=== PATIENT | female | born 1970 | race African-American/Black ===

== ENCOUNTER 2016-12-22 12:33 | Emergency (ER) | payer OTHER ==
[~2016-12-22] VITALS: Ht 167.6 cm; Wt 151.7 kg
[~2016-12-22 12:33] MED LIST: ABILIFY PO; ABILIFY20 MG PO; ABILIFY30 MG PO; ALLERGY RELIEF10 M1 PO; ANTIVERT25 MG PO; ASPIRIN EC325 MG PO; AZITHROMYCIN250 MG1 PO; CHILDREN'S ASPI81 M1 PO; DEPAKOTE ER250 MG PO; DESYREL 150 MG150 MG PO; DESYREL100 MG PO; EXCEDRIN EXT1 TABLET PO; Ecotrin PO; FIORICET 50-301 EACH PO; FIORICET WI1 CAPSULE PO; FLEXERIL10 MG PO; FLONASE16 G1 BOTH NARES; GEODON80 MG PO; HYDROCHLOROTH12.5 M3 PO; IMITREX100 MG PO; LASIX20 MG PO; LEVAQUIN500 MG PO; MECLIZINE HCL25 MG PO; MEDROL DOSEPAK4 MG PO; MINIPRESS1 MG PO; MOBIC7.5 MG PO; MOTION SICKNESS25 M1 PO; MOTRIN IB200 MG PO; MOTRIN400 MG PO; MOTRIN600 MG PO; MOTRIN800 MG PO; NAPROSYN500 MG PO; NAPROXEN500 MG PO; NEURONTIN100 MG PO; NOHOMEMEDS; NON-DROWSY ALLE10 MG PO; PHENERGAN-CODE120 ML PO; PRAVACHOL10 MG PO; PRAVASTATIN SOD10 MG PO; PRAZOSIN HCL1 MG PO; PREDNISONE20 MG PO; PRILOSEC20 MG PO; PRILOSEC40 MG PO; PROAIR HFA8.5 GM IH; RANITIDINE HCL150 MG PO; REGLAN10 MG PO; SUMATRIPTAN SU100 MG PO; TOPAMAX100 MG PO; TOPAMAX25 MG PO; TRAMADOL HCL50 MG PO; TYLENOL EXTRA500 MG PO; ULTRAM50 MG PO; ZANTAC150 MG PO; ZOLOFT PO; ZOLOFT100 MG PO
[2016-12-22 13:16] LABS: HEMATOCRIT 42.9 % (36.0-46.0); MCH 30.1 PG (29.0-34.0); MCHC 33.1 G/DL (30.0-36.0); MCV 90.9 FL (83-99); MEAN PLAT.VOLUME 9.6 uM^3 (9.5-12.4); PLATELET COUNT 356 K/uL (156-360); RBC DIS.WIDTH-SD 42.6 % (39-53); RED BLOOD COUNT 4.72 M/uL (3.80-5.20); WHITE BLOOD COUNT 5.5 K/uL (4.1-10.2)
[2016-12-22 13:31] LABS: CHLORIDE 105 mEq/L (99-109); POTASSIUM 3.9 mEq/L (3.7-5.4); SODIUM 138 mEq/L (136-147)
[2016-12-22 13:32] LABS: GLUCOSE 90 mg/dL (70-99)
[2016-12-22 13:33] LABS: TROP-I INTERPRETATION NEGATIVE; TROPONIN-I < 0.01 ng/mL (0.0-0.30)
[2016-12-22 13:34] LABS: ANION GAP 7 MEQ/L (2-14)
[2016-12-22 13:36] LABS: GFR ESTIMATE (CALCULATED) > 59 mL/min/
[2016-12-22 13:37] LABS: UREA NITROGEN (BUN) 9 mg/dL (9-23)
[2016-12-22 18:04] LABS: D-DIMER ELISA 0.23 mg/L FEU (< 0.57)
[2016-12-22 18:12] LABS: TROP-I INTERPRETATION NEGATIVE; TROPONIN-I < 0.01 ng/mL (0.0-0.30)
[2016-12-22] MEDS ORDERED: VALIUM5 MG PO (18:21)
[2016-12-22] MEDS ORDERED: ULTRACET1 TABLET PO (18:21)
[2016-12-22] MEDS ORDERED: TESSALON PERLE100 MG PO (18:21)
[2016-12-22] MEDS ORDERED: INDOCIN50 MG PO (18:21)
[2016-12-22 18:44] LABS: INFLUENZA A VIRAL ANTIGEN NEGATIVE; INFLUENZA B VIRAL ANTIGEN NEGATIVE
[2016-12-22 20:07] VITALS: BP 145/89
== END 2016-12-22 20:07 | disposition home or self-care (01) ==
LOC: EME 12:33
PROVIDERS: Physician Assistant
DX: M62.830 Muscle spasm of back (principal); S29.011A Strain of muscle and tendon of front wall of thorax, initial encounter; X58.XXXA Exposure to other specified factors, initial encounter; J40 Bronchitis, not specified as acute or chronic; I10 Essential (primary) hypertension; R11.0 Nausea; R42 Dizziness and giddiness; R51 Headache; Z79.82 Long term (current) use of aspirin; Z87.891 Personal history of nicotine dependence
CPT/HCPCS: 71020; 80048; 84484; 85027; 85379; 87502; 93005; 99281; 99284

== ENCOUNTER 2017-02-02 00:15 | Emergency (ER) | payer OTHER ==
[~2017-02-02] VITALS: Ht 167.6 cm; Wt 150.5 kg
[~2017-02-02 00:15] MED LIST changes: +INDOCIN50 MG PO; +TESSALON PERLE100 MG PO; +ULTRACET1 TABLET PO; +VALIUM5 MG PO
[2017-02-02] MEDS ORDERED: PERCOCET 5/31 TABLET PO (01:37)
[2017-02-02] MEDS ORDERED: FLEXERIL10 MG PO (01:38)
[2017-02-02 01:50] VITALS: BP 146/82
== END 2017-02-02 01:58 | disposition home or self-care (01) ==
LOC: EXP 00:15 → EME 00:15 → EXP 01:58
DX: S70.01XA Contusion of right hip, initial encounter (principal); M25.511 Pain in right shoulder; W11.XXXA Fall on and from ladder, initial encounter; Z79.82 Long term (current) use of aspirin; Z87.891 Personal history of nicotine dependence
CPT/HCPCS: 73030; 73502; 99281; 99283

== ENCOUNTER 2017-03-04 18:20 | Emergency (ER) | payer OTHER ==
[~2017-03-04] VITALS: Ht 167.6 cm; Wt 152.0 kg
[~2017-03-04 18:20] MED LIST changes: +PERCOCET 5/31 TABLET PO
[2017-03-04 19:37] LABS: MCH 30.2 PG (29.0-34.0); MCHC 33.2 G/DL (30.0-36.0); MCV 91.1 FL (83-99); MEAN PLAT.VOLUME 9.6 uM^3 (9.5-12.4); PLATELET COUNT 377 K/uL (156-360); RBC DIS.WIDTH-CV 12.7 % (11.8-14.6); WHITE BLOOD COUNT 8.2 K/uL (4.1-10.2)
[2017-03-04 19:44] LABS: CHLORIDE 105 mEq/L (99-109); POTASSIUM 3.5 mEq/L (3.7-5.4); SODIUM 138 mEq/L (136-147)
[2017-03-04 19:46] LABS: GLUCOSE 93 mg/dL (70-99)
[2017-03-04 19:48] LABS: ANION GAP 8 MEQ/L (2-14)
[2017-03-04 19:50] LABS: GFR ESTIMATE (CALCULATED) > 59 mL/min/
[2017-03-04 19:51] LABS: UREA NITROGEN (BUN) 7 mg/dL (9-23)
[2017-03-04 21:01] LABS: ADD MIUA? YES; BILIRUBIN NEGATIVE; BLOOD NEGATIVE; COLOR YELLOW ((YELLOW)); GLUCOSE (STRIP) NEGATIVE; KETONES NEGATIVE; LEUKOCYTES TRACE; NITRITE NEGATIVE; PROTEIN (STRIP) NEGATIVE; SPECIFIC GRAVITY 1.016 (1.000-1.030); UROBILINOGEN 0.2 MG/DL (0.2-1.0)
[2017-03-04 21:02] LABS: INTERNAL CONTROL VALID? YES
[2017-03-04 21:09] LABS: BACTERIA NONE SEEN /HPF; EPITHELIAL CELLS 1+ /HPF; MUCUS TRACE /LPF; RED BLOOD CELLS 0-5 /HPF (0-5); UCUL ADDED? NO; WHITE BLOOD CELLS 0-5 /HPF (0-5)
[2017-03-04 21:38] VITALS: BP 151/108
== END 2017-03-04 21:46 | disposition home or self-care (01) ==
LOC: EME 18:20
PROVIDERS: Emergency Medicine
DX: I10 Essential (primary) hypertension (principal); R51 Headache; H53.8 Other visual disturbances; R11.0 Nausea; J45.909 Unspecified asthma, uncomplicated; Z82.49 Family history of ischemic heart disease and other diseases of the circulatory system; Z79.82 Long term (current) use of aspirin; Z87.891 Personal history of nicotine dependence
CPT/HCPCS: 71020; 80048; 81003; 84703; 85027; 93005; 99281; 99284

== ENCOUNTER 2017-04-28 13:45 | Emergency (ER) | payer OTHER ==
[~2017-04-28] VITALS: Ht 167.6 cm; Wt 149.2 kg
[2017-04-28 15:35] LABS: HEMATOCRIT 41.7 % (36.0-46.0); MCH 30.2 PG (29.0-34.0); MCHC 32.9 G/DL (30.0-36.0); MCV 91.9 FL (83-99); MEAN PLAT.VOLUME 9.7 uM^3 (9.5-12.4); PLATELET COUNT 370 K/uL (156-360); RBC DIS.WIDTH-CV 13.1 % (11.8-14.6); RBC DIS.WIDTH-SD 43.9 % (39-53); RED BLOOD COUNT 4.54 M/uL (3.80-5.20); WHITE BLOOD COUNT 8.3 K/uL (4.1-10.2)
[2017-04-28 15:49] LABS: CHLORIDE 110 mEq/L (99-109); POTASSIUM 3.8 mEq/L (3.7-5.4); SODIUM 140 mEq/L (136-147)
[2017-04-28 15:51] LABS: GLUCOSE 92 mg/dL (70-99)
[2017-04-28 15:52] LABS: ANION GAP 5 MEQ/L (2-14)
[2017-04-28 15:53] LABS: TOTAL BILIRUBIN 0.4 mg/dL (0.0-1.0)
[2017-04-28 15:55] LABS: ALKALINE PHOSPHATASE 80 IU/L (3-129); GFR ESTIMATE (CALCULATED) > 59 mL/min/
[2017-04-28 15:56] LABS: UREA NITROGEN (BUN) 10 mg/dL (9-23)
[2017-04-28 15:57] LABS: QUANTITATIVE HCG < 4.0 MIU/ML
[2017-04-28 15:58] LABS: LIPASE 26 U/L (1.0-51.0)
[2017-04-28 17:42] LABS: ADD MIUA? YES; BILIRUBIN NEGATIVE; BLOOD SMALL; COLOR YELLOW ((YELLOW)); GLUCOSE (STRIP) NEGATIVE; KETONES NEGATIVE; LEUKOCYTES MODERATE; NITRITE NEGATIVE; PROTEIN (STRIP) 30; SPECIFIC GRAVITY 1.023 (1.000-1.030); UROBILINOGEN 0.2 MG/DL (0.2-1.0)
[2017-04-28 17:53] LABS: BACTERIA RARE /HPF; EPITHELIAL CELLS 2+ /HPF; MUCUS TRACE /LPF; RED BLOOD CELLS 0-5 /HPF (0-5); UCUL ADDED? NO; WHITE BLOOD CELLS 0-5 /HPF (0-5)
[2017-04-28] MEDS ORDERED: ULTRAM50 MG PO (19:46)
[2017-04-28] MEDS ORDERED: ZOFRAN4 MG PO (19:46)
[2017-04-28 20:07] VITALS: BP 127/77
== END 2017-04-28 20:08 | disposition home or self-care (01) ==
LOC: EME 13:45
DX: R10.9 Unspecified abdominal pain (principal); I10 Essential (primary) hypertension; K21.9 Gastro-esophageal reflux disease without esophagitis; J45.909 Unspecified asthma, uncomplicated; Z79.82 Long term (current) use of aspirin; Z87.891 Personal history of nicotine dependence
CPT/HCPCS: 74177; 80053; 81003; 83690; 84702; 85027; 99281; 99285; J3010; J7030

== ENCOUNTER 2017-07-03 14:29 | Emergency (ER) | payer OTHER ==
[~2017-07-03] VITALS: Ht 167.6 cm; Wt 148.8 kg
[~2017-07-03 14:29] MED LIST changes: +ZOFRAN4 MG PO
[2017-07-03 14:52] LABS: MCH 30.2 PG (29.0-34.0); MCHC 32.6 G/DL (30.0-36.0); MCV 92.7 FL (83-99); MEAN PLAT.VOLUME 9.2 uM^3 (9.5-12.4); PLATELET COUNT 357 K/uL (156-360); RBC DIS.WIDTH-CV 12.8 % (11.8-14.6); RBC DIS.WIDTH-SD 43.7 % (39-53); RED BLOOD COUNT 4.64 M/uL (3.80-5.20); WHITE BLOOD COUNT 6.1 K/uL (4.1-10.2)
[2017-07-03 15:00] LABS: CHLORIDE 106 mEq/L (99-109); POTASSIUM 4.3 mEq/L (3.7-5.4); SODIUM 139 mEq/L (136-147)
[2017-07-03 15:03] LABS: GLUCOSE 96 mg/dL (70-99)
[2017-07-03 15:04] LABS: ANION GAP 7 MEQ/L (2-14)
[2017-07-03 15:05] LABS: TOTAL BILIRUBIN 0.4 mg/dL (0.0-1.0)
[2017-07-03 15:06] LABS: ALKALINE PHOSPHATASE 81 IU/L (3-129); GFR ESTIMATE (CALCULATED) > 59 mL/min/
[2017-07-03 15:07] LABS: UREA NITROGEN (BUN) 12 mg/dL (9-23)
[2017-07-03 15:15] LABS: QUANTITATIVE HCG < 4.0 MIU/ML
[2017-07-03 16:28] LABS: LIPASE 11 U/L (1.0-51.0)
[2017-07-03 17:37] LABS: ADD MIUA? YES; BILIRUBIN NEGATIVE; BLOOD SMALL; COLOR YELLOW ((YELLOW)); GLUCOSE (STRIP) NEGATIVE; KETONES NEGATIVE; LEUKOCYTES NEGATIVE; NITRITE NEGATIVE; PROTEIN (STRIP) NEGATIVE; SPECIFIC GRAVITY 1.021 (1.000-1.030); UROBILINOGEN 0.2 MG/DL (0.2-1.0)
[2017-07-03 18:00] LABS: BACTERIA NONE SEEN /HPF; EPITHELIAL CELLS RARE /HPF; MUCUS TRACE /LPF; RED BLOOD CELLS 0-5 /HPF (0-5); UCUL ADDED? NO; WHITE BLOOD CELLS 0-5 /HPF (0-5)
[2017-07-03 18:39] VITALS: BP 154/95
== END 2017-07-03 18:40 | disposition home or self-care (01) ==
LOC: EME 14:29
DX: D25.1 Intramural leiomyoma of uterus (principal); R10.2 Pelvic and perineal pain; R11.0 Nausea; I10 Essential (primary) hypertension; J45.909 Unspecified asthma, uncomplicated; Z79.82 Long term (current) use of aspirin; Z87.891 Personal history of nicotine dependence
CPT/HCPCS: 76856; 80053; 81003; 83690; 84702; 85027; 99281; 99283; J3010

== ENCOUNTER 2017-08-11 21:39 | Inpatient (IN) | payer OTHER ==
[~2017-08-11] VITALS: Ht 167.6 cm; Wt 145.1 kg
[~2017-08-11 21:39] MED LIST changes: +DICLOFENAC SODI25 MG PO; +OXYCODONE-APAP1 EAC6 PO
[2017-08-12 05:53] VITALS: BP 123/60
[2017-08-12 19:55] VITALS: BP 129/72
[2017-08-12 23:00] VITALS: BP 124/78
[2017-08-13 03:20] VITALS: BP 135/81
[2017-08-13 06:45] LABS: HEMATOCRIT 36.9 % (36.0-46.0); MCH 29.8 PG (29.0-34.0); MCHC 33.1 G/DL (30.0-36.0); MEAN PLAT.VOLUME 9.4 uM^3 (9.5-12.4); PLATELET COUNT 382 K/uL (156-360); RBC DIS.WIDTH-CV 12.4 % (11.8-14.6); RBC DIS.WIDTH-SD 40.9 % (39-53); WHITE BLOOD COUNT 13.1 K/uL (4.1-10.2)
[2017-08-13 08:13] VITALS: BP 111/67
[2017-08-13 11:57] VITALS: BP 115/65
[2017-08-13 17:05] VITALS: BP 112/53
[2017-08-13 19:35] VITALS: BP 132/64
[2017-08-13 23:12] VITALS: BP 139/84
[2017-08-14 03:30] VITALS: BP 142/71
[2017-08-14 07:50] VITALS: BP 166/87
[2017-08-14] MEDS ORDERED: ZOFRAN4 MG PO (09:36)
[2017-08-14] MEDS ORDERED: PERCOCET 5/31 TABLET PO (09:36)
[2017-08-14] MEDS ORDERED: MOTRIN800 MG PO (09:36)
[2017-08-14 12:23] VITALS: BP 130/72
== END 2017-08-14 12:35 | disposition home or self-care (01) | DRG 742 ==
LOC: ENRESERV 21:39 → 2SOUTH 08-12 05:26 → ENRESERV 08-12 12:12 → 2EAST 08-12 13:38
PROVIDERS: Obstetrics & Gynecology
DX: D25.9 Leiomyoma of uterus, unspecified (principal); Z68.43 Body mass index [BMI] 50.0-59.9, adult; E66.01 Morbid (severe) obesity due to excess calories; G89.29 Other chronic pain; K21.9 Gastro-esophageal reflux disease without esophagitis; N93.9 Abnormal uterine and vaginal bleeding, unspecified; Z87.891 Personal history of nicotine dependence; Z80.0 Family history of malignant neoplasm of digestive organs; Z98.51 Tubal ligation status; N72 Inflammatory disease of cervix uteri
CPT/HCPCS: 36415; 84702 GA; 85025; 85027; 86850; 86900; 86901; 88307; 99202; J0131; J0330; J0690; J1100; J1170; J2250; J2270; J2405; J2710; J2765; J3010; J7120

== ENCOUNTER 2017-10-25 13:23 | Emergency (ER) | payer OTHER ==
[~2017-10-25] VITALS: Ht 167.6 cm; Wt 144.3 kg
[2017-10-25] MEDS ORDERED: NAPROSYN500 MG PO (16:13)
[2017-10-25 16:38] VITALS: BP 119/58
== END 2017-10-25 16:40 | disposition home or self-care (01) ==
LOC: EME 13:23
DX: S63.501A Unspecified sprain of right wrist, initial encounter (principal); Y04.0XXA Assault by unarmed brawl or fight, initial encounter; Z88.0 Allergy status to penicillin
CPT/HCPCS: 73110; 99281; 99283

== ENCOUNTER 2017-11-24 14:24 | Emergency (ER) | payer OTHER ==
[~2017-11-24] VITALS: Ht 167.6 cm; Wt 144.0 kg
[2017-11-24 14:56] LABS: HEMATOCRIT 41.8 % (36.0-46.0); HEMOGLOBIN 13.9 G/DL (11.9-15.5); MCHC 33.3 G/DL (30.0-36.0); MCV 90.3 FL (83-99); PLATELET COUNT 417 K/uL (156-360); RBC DIS.WIDTH-CV 12.7 % (11.8-14.6); RBC DIS.WIDTH-SD 41.8 % (39-53); RED BLOOD COUNT 4.63 M/uL (3.80-5.20); WHITE BLOOD COUNT 7.3 K/uL (4.1-10.2)
[2017-11-24 15:06] LABS: ALBUMIN 3.7 g/dL (3.2-4.8); CHLORIDE 108 mEq/L (99-109); POTASSIUM 3.5 mEq/L (3.7-5.4); SODIUM 138 mEq/L (136-147)
[2017-11-24 15:09] LABS: GLUCOSE 119 mg/dL (70-99); TOTAL PROTEIN 7.4 g/dL (6.4-8.3)
[2017-11-24 15:11] LABS: TOTAL BILIRUBIN 0.5 mg/dL (0.0-1.0)
[2017-11-24 15:12] LABS: ALKALINE PHOSPHATASE 90 IU/L (3-129); CREATININE 0.8 mg/dL (0.6-1.3); GFR ESTIMATE (CALCULATED) > 59 mL/min/
[2017-11-24 15:13] LABS: UREA NITROGEN (BUN) 10 mg/dL (9-23)
[2017-11-24 15:14] LABS: AST (GOT) 16 IU/L (2-34)
[2017-11-24 15:15] LABS: ALT (GPT) 14 IU/L (3-49)
[2017-11-24 15:21] LABS: QUANTITATIVE HCG < 4.0 MIU/ML
[2017-11-24 17:23] LABS: APPEARANCE CLOUDY ((CLEAR)); BILIRUBIN NEGATIVE; BLOOD SMALL; COLOR YELLOW ((YELLOW)); GLUCOSE (STRIP) NEGATIVE; KETONES NEGATIVE; LEUKOCYTES NEGATIVE; NITRITE NEGATIVE; PROTEIN (STRIP) NEGATIVE; SPECIFIC GRAVITY 1.026 (1.000-1.030)
[2017-11-24 17:32] LABS: BACTERIA RARE /HPF; EPITHELIAL CELLS 2+ /HPF; HYALINE CASTS 0-5 /LPF; MUCUS 2+ /LPF; RED BLOOD CELLS 0-5 /HPF (0-5); UCUL ADDED? NO; WHITE BLOOD CELLS 0-5 /HPF (0-5)
[2017-11-24 19:52] VITALS: BP 137/103
== END 2017-11-24 19:54 | disposition home or self-care (01) ==
LOC: EME 14:24
DX: R10.2 Pelvic and perineal pain (principal); R93.5 Abnormal findings on diagnostic imaging of other abdominal regions, including retroperitoneum; I10 Essential (primary) hypertension; J45.909 Unspecified asthma, uncomplicated; G43.909 Migraine, unspecified, not intractable, without status migrainosus; F41.9 Anxiety disorder, unspecified; Z87.891 Personal history of nicotine dependence; Z79.82 Long term (current) use of aspirin; Z79.891 Long term (current) use of opiate analgesic; Z90.710 Acquired absence of both cervix and uterus; Z87.19 Personal history of other diseases of the digestive system; Z88.0 Allergy status to penicillin
CPT/HCPCS: 74177; 80053; 81003; 84702; 85027; 99281; 99284

== ENCOUNTER 2018-04-28 20:50 | Emergency (ER) | payer OTHER ==
[~2018-04-28] VITALS: Ht 167.6 cm; Wt 144.0 kg
[2018-04-28 21:30] LABS: HEMATOCRIT 39.6 % (36.0-46.0); HEMOGLOBIN 13.3 G/DL (11.9-15.5); MCH 30.2 PG (29.0-34.0); MCHC 33.6 G/DL (30.0-36.0); PLATELET COUNT 347 K/uL (156-360); RBC DIS.WIDTH-CV 12.9 % (11.8-14.6); RBC DIS.WIDTH-SD 42.8 % (39-53); WHITE BLOOD COUNT 7.8 K/uL (4.1-10.2)
[2018-04-28 21:40] LABS: ALBUMIN 3.9 g/dL (3.2-4.8)
[2018-04-28 21:41] LABS: CHLORIDE 110 mEq/L (99-109); POTASSIUM 3.8 mEq/L (3.7-5.4); SODIUM 143 mEq/L (136-147)
[2018-04-28 21:43] LABS: GLUCOSE 100 mg/dL (70-99); TOTAL PROTEIN 7.1 g/dL (6.4-8.3)
[2018-04-28 21:45] LABS: TOTAL BILIRUBIN 0.4 mg/dL (0.0-1.0)
[2018-04-28 21:46] LABS: ALKALINE PHOSPHATASE 80 IU/L (3-129)
[2018-04-28 21:47] LABS: CREATININE 0.9 mg/dL (0.6-1.3); GFR ESTIMATE (CALCULATED) > 59 mL/min/
[2018-04-28 21:48] LABS: AST (GOT) 22 IU/L (2-34); UREA NITROGEN (BUN) 9 mg/dL (9-23)
[2018-04-28 21:49] LABS: ALT (GPT) 17 IU/L (3-49)
[2018-04-28 22:03] LABS: APPEARANCE SL.HAZY ((CLEAR)); BILIRUBIN NEGATIVE; BLOOD NEGATIVE; COLOR YELLOW ((YELLOW)); GLUCOSE (STRIP) NEGATIVE; KETONES NEGATIVE; LEUKOCYTES NEGATIVE; NITRITE NEGATIVE; PROTEIN (STRIP) NEGATIVE; SPECIFIC GRAVITY 1.024 (1.000-1.030)
[2018-04-28 22:08] LABS: BACTERIA NONE SEEN /HPF; EPITHELIAL CELLS 1+ /HPF; MUCUS TRACE /LPF; UCUL ADDED? NO; WHITE BLOOD CELLS 0-5 /HPF (0-5)
[2018-04-28 23:15] VITALS: BP 142/83
== END 2018-04-28 23:16 | disposition home or self-care (01) ==
LOC: EME 20:50
PROVIDERS: Nurse Practitioner Family
DX: K57.30 Diverticulosis of large intestine without perforation or abscess without bleeding (principal); R10.32 Left lower quadrant pain; R11.2 Nausea with vomiting, unspecified; I10 Essential (primary) hypertension; Z79.82 Long term (current) use of aspirin; Z88.0 Allergy status to penicillin; Z87.891 Personal history of nicotine dependence; Z90.710 Acquired absence of both cervix and uterus
CPT/HCPCS: 74177; 80053; 81003; 85027; 99281; 99284; J1885; J2405; J3010

== ENCOUNTER 2018-05-20 17:26 | Emergency (ER) | payer OTHER ==
[~2018-05-20] VITALS: Ht 167.6 cm; Wt 143.3 kg
[2018-05-20] MEDS ORDERED: FLEXERIL10 MG PO (18:33)
[2018-05-20] MEDS ORDERED: TORADOL10 MG PO (18:33)
[2018-05-20] MEDS ORDERED: LIDODERM 5% P1 PATCH TD (18:33)
[2018-05-20 18:55] VITALS: BP 147/89
== END 2018-05-20 18:58 | disposition home or self-care (01) ==
LOC: EME 17:26
DX: M54.42 Lumbago with sciatica, left side (principal); M54.16 Radiculopathy, lumbar region; R11.0 Nausea; J45.909 Unspecified asthma, uncomplicated; Z79.82 Long term (current) use of aspirin; Z87.891 Personal history of nicotine dependence
CPT/HCPCS: 99281; 99284; J1885